=== PATIENT | female | born 1965 | race Caucasian/White ===

== ENCOUNTER 2018-10-11 14:39 | Emergency (ER) | payer BC ==
[2018-10-11 15:31] VITALS: BP 142/84
--- NOTE | 2018-10-11 16:30 | UC ---
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 Hx of sinusitis and altered ear drainage" -she had similar sx end of Jul. went to PCP's and was given augmentin for possible ear infection. she felt better after some time. no sinus pain. she has no ear pain. no cough. no ST. no PND. no wheezing. -denies ear discharge ever - History of Current Complaint Chief Complaint: UCEar Stated Complaint: SINUS CONGESTION,BILATERAL EAR RINGING Time Seen by Provider: 10/11/18 16:05 Hx Last Menstrual Period: 2 yrs Pain Intensity: 3 - Allergies/Home Medications Allergies/Adverse Reactions: Allergies Allergy/AdvReac Type Severity Reaction Status Date / Time tramadol Allergy Severe Anxiety Verified 10/11/18 15:21 Home Medications: Home Medications Calcium Polycarbophil [Fiber] 3 tab PO QAM 10/11/18 [History Confirmed 10/11/18] Ibuprofen/Diphenhydramine Cit [Advil Pm Caplet] 2 each PO QPM PRN 10/11/18 [ History Confirmed 10/11/18] Levothyroxine TAB* [Synthroid TAB*] 50 mcg PO QAM 10/11/18 [History Confirmed ] Holabird Oil/[place]-3 Fatty Acids [Holabird Oil 1,000 mg Softgel] 1 cap PO DAILY 08/31 [History Confirmed 10/11/18] PMH/Surg Hx/FS Hx/Imm Hx Previously Healthy: Yes - Surgical History Surgical History: Yes Surgery Procedure, Year, and Place: Left shoulder surgery- [place]; right thumb 2013; right elbow 12/2016, shoulder 08/2017. c- section. tonsillectomy. Bladder stretched. D&C - Family History Known Family History: Positive: Hypertension - Social History Alcohol Use: Occasionally Alcohol Amount: 2 Substance Use Type: None Smoking Status (MU): Never Smoked Tobacco Review of Systems All Other Systems Reviewed And Are Negative: Yes Constitutional: Positive: Negative Skin: Positive: Negative Eyes: Positive: Negative ENT: Positive: Ear Ache, Other Respiratory: Positive: Negative Cardiovascular: Positive: Negative Gastrointestinal: Positive: Negative Genitourinary: Positive: Negative Motor: Positive: Negative Neurovascular: Positive: Negative Musculoskeletal: Positive: Negative Neurological: Positive: Negative Psychological: Positive: Negative Is Patient Immunocompromised?: No Physical Exam Triage Information Reviewed: Yes Appearance: Well-Appearing, No Pain Distress, Well-Nourished Vital Signs: Initial Vital Signs Temp 98.7 F 10/11/18 15:24 Pulse 82 10/11/18 15:24 Resp 18 10/11/18 15:24 BP 142/84 10/11/18 15:24 Pulse Ox 100 10/11/18 15:24 Vital Signs Reviewed: Yes Eye Exam: Normal ENT: Positive: Hearing grossly normal, Pharynx normal - w/ + mild PND., TMs normal - mild b/l serous fluid and mild fullness, Uvula midline. Negative: Pharyngeal erythema, Nasal congestion, Nasal drainage, TM bulging, TM dull, TM red, Tonsillar swelling, Tonsillar exudate, Hoarse voice, Sinus tenderness Dental Exam: Normal Neck exam: Normal Neck: Positive: Supple, Nontender, No Lymphadenopathy Respiratory Exam: Normal Respiratory: Positive: Lungs clear, Normal breath sounds, No respiratory distress, No accessory muscle use. Negative: Crackles, Rhonchi, Stridor, Wheezing Cardiovascular Exam: Normal Cardiovascular: Positive: RRR, No Murmur, Pulses Normal Abdominal Exam: Normal Abdomen Description: Positive: Nontender, Soft Musculoskeletal Exam: Normal Neurological Exam: Normal Psychological Exam: Normal Skin Exam: Normal Throat Pain/Nasal Course/Dx - Differential Dx/Diagnosis Differential Diagnosis/HQI/PQRI: Otitis Media, Pharyngitis, Sinusitis, URI Provider Diagnosis: Serous otitis media Discharge - Sign-Out/Discharge Documenting (check all that apply): Patient Departure All imaging exams completed and their final reports reviewed: No Studies - Discharge Plan Condition: Stable Disposition: HOME Patient Education Materials: Serous Otitis Media (ED) Referrals: Landy Valerio PA [Primary Care Provider] - If Needed Additional Instructions: -Steroid nasal sprays can help the non infected inner ear fluid to drain through your nose. There is no evidence of bacterial infection. You can buy flonase nasal spray over the counter. Using a humidifier can be helpful as well. - Billing Disposition and Condition Condition: STABLE Disposition: Home
== END 2018-10-11 16:51 | disposition home or self-care (01) ==
LOC: UCCORT 14:39
DX: H65.93 Unspecified nonsuppurative otitis media, bilateral (principal); J34.89 Other specified disorders of nose and nasal sinuses; Z88.5 Allergy status to narcotic agent
CPT/HCPCS: 99201; G0463